=== PATIENT | male | born 1960 | race Caucasian/White ===

== ENCOUNTER 2016-08-13 09:12 | Day surgery (SDC) | payer MEDICAID ==
[~2016-08-13] VITALS: Ht 177.8 cm; Wt 97.5 kg
[~2016-08-13 09:12] MED LIST: CIPROFLOXACIN500 MG PO; FLOMAX 0.4MG C0.4 MG PO; HYDROCODONE-APA1 TA1 PO; HYDROCODONE/ACE1 TA5 PO; NOMEDS XX; PERCOCET 325 MG1 TA3 PO; PERCOCET 5/3251 EACH PO; TAMSULOSIN HCL0.4 MG PO
--- NOTE | 2016-08-13 10:54 | Operative Note ---
Endoscopy Report Date: 08/13/16 Preoperative diagnosis: History of numerous polyps Procedure Type of procedure: Total colonoscopy with snare polypectomy at 2 locations Indications: Patient is a regular patient in the office. Of note, he does have some biliary dyskinesia. However, I performed colonoscopy on 12/12/15 ridge required propofol administration by anesthesia. He had a total of 19 polyps removed. 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 Given the very large number of aggressive polyps plan was made for early follow-up colonoscopy. He's had no complaints but does have some postprandial RIGHT upper quadrant pain and has documented biliary dyskinesia however the patient has wished to refrain from gallbladder surgery. He also does have a small asymptomatic umbilical hernia. Patient stated the morning of his planned procedure that his hemorrhoids had once again become symptomatic with the bowel prep. Consent was obtained and patient was taken to same-day surgery endoscopy procedure room. He was positioned in a lateral decubitus position. Adequate intravenous sedation was achieved with anesthesia titration of propofol. Variable stiffness Olympus colonoscope was inserted via the anus with the endo- cuff in place. It was advanced to the cecum without significant difficulty. Ileocecal valve and appendiceal orifice were clearly identified. Colonoscope was withdrawn through the colon with careful surveillance. In the transverse colon there was a small polyp removed with cold snare. Colonoscope was withdrawn to the descending colon and in the rectum there was a sessile polyp removed with hot snare. Retroflexion revealed internal prolapsing hemorrhoids. Colonoscope was withdrawn. Findings: Polyp 2 Mild prolapsing hemorrhoids Recommendations: Follow-up on histopathology. Likely plan for repeat colonoscopy in 2 years given the previous history. His symptomatic prolapsing hemorrhoids may be amenable to steroid suppository and dietary measures. at [id number]
[2016-08-13 11:35] VITALS: BP 138/88
== END 2016-08-13 11:25 | disposition home or self-care (01) ==
LOC: SDC 09:12
PROVIDERS: Surgery
PROC: 0DBL8ZX Excision of Transverse Colon, Via Natural or Artificial Opening Endoscopic, Diagnostic (ICD-10-PCS; 2016-08-13)
PROC: 0DBP8ZX Excision of Rectum, Via Natural or Artificial Opening Endoscopic, Diagnostic (ICD-10-PCS; principal; 2016-08-13 10:00)
DX: Z09 Encounter for follow-up examination after completed treatment for conditions other than malignant neoplasm (principal); Z86.010 Personal history of colon polyps; D12.3 Benign neoplasm of transverse colon; K62.1 Rectal polyp; K64.8 Other hemorrhoids